=== PATIENT | female | born 1990 | race Caucasian/White ===

== ENCOUNTER 2019-09-25 15:31 | Observation (INO) ==
[2019-09-25 16:20] LABS: Bilirubin,Urine Negative (Negative); Blood,Urine Negative (Negative); Clarity,Urine Clear (Clear); Color,Urine Yellow (Yellow); Glucose,Urine (UA) Normal (Normal); Ketones,Urine Trace mg/dL (Negative); Leukocyte Esterase,Urine Negative (Negative); Nitrite,Urine Negative (Negative); Protein,Urine Trace mg/dL (Neg-Trace); Specific Gravity,Urine 1.029 (1.010-1.025); Urobilinogen,Urine Normal (Normal)
[2019-09-25 16:23] LABS: Basophils % 0.2 %; Eosinophils # 0.1 K/mcL (0.0-0.6); Eosinophils % 1.9 %; Hematocrit 45.7 % (35.3-44.9); Immature Granulocytes % 0.2 % (0-4); Lymphocytes # 1.8 K/mcL (0.6-4.6); Lymphocytes % 37.7 %; Mean Corpuscular HGB Conc 32.8 g/dL (31.6-35.5); Mean Corpuscular Volume 88.2 fL (83.0-100.0); Mean Platelet Volume 9.9 fL (9.4-12.4); Monocytes # 0.5 K/mcL (0.0-1.3); Monocytes % 10.7 %; Neutrophils # 2.3 K/mcL (1.6-8.9); Platelet Count 205 K/mcL (140-400); Red Blood Count 5.18 M/mcL (3.82-4.97); Red Cell Distribution Width 13.2 % (11.5-14.5); Segmented Neutrophils % 49.3 %; White Blood Count 4.7 K/mcL (4.3-11.1)
[2019-09-25 16:38] LABS: Acetaminophen < 10 mcg/mL (10-20); BUN/Creatinine Ratio 13 (6-26); Blood Urea Nitrogen 13 mg/dL (6-20); Calcium 9.9 mg/dL (8.6-10.3); Carbon Dioxide 28 mEq/L (23-29); Chloride 101 mEq/L (98-107); Ethanol < 10 mg/dL (Less than 10); Glucose 88 mg/dL (70-105); Osmolality,Calculated 288 (280-300); Salicylate < 2.5 mg/dL (15.0-30.0); Sodium 139 mEq/L (136-145); eGFR For African Americans > 60 (> 60); eGFR For Non-African Americans > 60 (> 60)
[2019-09-25] MEDS ORDERED: Ibuprofen 600 MG TABLET PO ONE (16:38)
[2019-09-25 16:41] LABS: Amphetamine Screen,Urine Negative ng/mL (Cutoff=1000); Barbiturate Screen,Urine Negative ng/mL (Cutoff=200); Benzodiazepines Screen,Urine Negative ng/mL (Cutoff=200); Cannabinoid Screen,Urine Positive ng/mL (Cutoff = 50); Cocaine Screen,Urine Negative ng/mL (Cutoff= 300); Opiate Screen,Urine Negative ng/mL (Cutoff=300); Phencyclidine Screen,Urine Negative ng/mL (Cutoff=25)
[2019-09-25] MEDS ORDERED: Mag Hydrox/Al Hydrox/Simeth 30 ML UDC PO PRN (18:17)
[2019-09-25] MEDS ORDERED: Haloperidol Lactate 5 MG/ML VIAL IM PRN (18:17)
[2019-09-25] MEDS ORDERED: *HR* LORazepam 1 MG TABLET PO PRN (18:17)
[2019-09-25] MEDS ORDERED: Ibuprofen 400 MG TABLET PO PRN (18:17)
[2019-09-25] MEDS ORDERED: MOM Conc 10 ML UD.LIQ PO PRN (18:17)
[2019-09-25] MEDS ORDERED: *HR* LORazepam 2 MG/ML VIAL IM PRN (18:17)
[2019-09-25] MEDS ORDERED: NON-FORMULARY MEDICATION 1 EACH EACH (Sumatriptan Succinate [Imitrex] 100 MG) PO PRN (18:21)
[2019-09-25] MEDS ORDERED: clonazePAM 1 MG TABLET PO PRN (18:21)
[2019-09-25] MEDS ORDERED: SUMAtriptan succinate 50 MG TABLET PO PRN (18:45)
[2019-09-25] MEDS: traZODone 50 MG TABLET PO PRN (21:03)
[2019-09-26] MEDS: hydrOXYzine pamoate 25 MG CAPSULE PO PRN ×2 (08:03→21:00)
[2019-09-26] MEDS ORDERED: BuPROPion SR (12 HR) 100 MG TABLET PO SCH (09:00)
[2019-09-26] MEDS ORDERED: diazePAM 5 MG TABLET PO PRN (10:52)
[2019-09-26] MEDS: Venlafaxine XR (24 HR) 37.5 MG CAP.ER.24H PO SCH (11:07)
[2019-09-26] MEDS: traZODone 50 MG TABLET PO PRN (21:00)
[2019-09-27] MEDS: Venlafaxine XR (24 HR) 37.5 MG CAP.ER.24H PO SCH (08:44)
[2019-09-27 08:49] VITALS: BP 113/73
[2019-09-27] MEDS ORDERED: BuPROPion XL (24 HR) 150 MG TABLET PO SCH (09:00)
[2019-09-27] MEDS: hydrOXYzine pamoate 25 MG CAPSULE PO PRN (09:47)
== END 2019-09-27 11:05 | disposition home or self-care (01) ==
LOC: EMEROOARM 15:31 → 1ANU 15:31
PROVIDERS: ADMIT Psychiatry & Neurology Psychiatry; ATTEND Psychiatry & Neurology Psychiatry